=== PATIENT | male | born 1970 | race Caucasian/White ===

== ENCOUNTER 2022-03-22 08:04 | Outpatient (CLI) | payer BC, SELFPAY ==
[2022-03-22 12:36] LABS: Albumin* 4.1 g/dL (3.3-5.0); Chloride* 111 mmol/L (96-114)
[2022-03-22 12:37] LABS: Sodium* 142 mmol/L (135-149)
[2022-03-22 12:39] LABS: Cholesterol* 185 mg/dL (90-199); Estimated Glomerular Filt Rate 91 ml/min
[2022-03-22 12:40] LABS: Alanine Aminotransferase* 25 U/L (4-50); Alkaline Phosphatase* 73 U/L (40-150); Aspartate Amino Transferase* 25 U/L (12-35); Bilirubin Total* 1.3 mg/dL (0.1-1.5); Blood Urea Nitrogen* 17 mg/dL (7-30); Calcium* 8.8 mg/dL (8.4-10.6); Carbon Dioxide* 26 mmol/L (20-32); Glucose* 100 mg/dL (60-115); HDL Cholesterol* 38 mg/dL (>=40); LDL Cholesterol Calculated 109 mg/dL (<100); Total Protein* 6.7 g/dL (6.0-8.3); Triglycerides* 192 mg/dL (40-149)
[2022-03-22 13:11] LABS: PSA Screen* 1.67 ng/mL (0.10-4.00)
== END 2022-03-22 08:05 | disposition home or self-care (01) ==
PROVIDERS: PCP Internal Medicine; Visit Provider Internal Medicine
DX: Z00.00 Encounter for general adult medical examination without abnormal findings (principal); Z13.6 Encounter for screening for cardiovascular disorders; Z12.5 Encounter for screening for malignant neoplasm of prostate
CPT/HCPCS: 80053; 80061; 84153

== ENCOUNTER 2023-06-14 09:20 | Outpatient (CLI) | payer BC, SELFPAY | END 2023-06-14 09:21 | disposition home or self-care (01) | LOC: NFLDREF 06-26 11:46 | PROVIDERS: PCP Internal Medicine; Referring Provider Internal Medicine; Visit Provider Internal Medicine | DX: E78.5 Hyperlipidemia, unspecified (principal); Z13.228 Encounter for screening for other metabolic disorders; Z12.5 Encounter for screening for malignant neoplasm of prostate | CPT/HCPCS: 80053; 80061; G0103 ==

== ENCOUNTER 2024-06-18 08:38 | Outpatient (CLI) | payer BC, SELFPAY ==
--- NOTE | 2024-06-18 09:48 | W.ANESCHARGE ---
Anesthesia Charges Start Date/Time Anesthesia Start Date: 06/18/24 Anesthesia Start Time: 09:08 Stop Date/Time Anesthesia Stop Date: 06/18/24 Anesthesia Stop Time: 09:45 Coding CPT Codes CPT Codes: KYLE LWR INTST NDSC NOS - [id number] ([id number]) P2 - PATIENT W/MILD SYST DISEASE, QK - COMPUTER FORENSICS TECHNICIAN 2-4 CNCRNT ANES PROC, QX - POWDER MONKEY SVC W/ MD MED DIRECTION
--- NOTE | 2024-06-18 10:10 | W.ANESCHARGE ---
Anesthesia Charges Start Date/Time Anesthesia Start Date: 06/18/24 Anesthesia Start Time: 09:08 Stop Date/Time Anesthesia Stop Date: 06/18/24 Anesthesia Stop Time: 09:45 Coding CPT Codes CPT Codes: KYLE LWR INTST NDSC NOS - [id number] ([id number]) P2 - PATIENT W/MILD SYST DISEASE, QK - EYEWEAR MANUFACTURING TECH 2-4 CNCRNT ANES PROC, QX - CART ATTENDANT SVC W/ MD MED DIRECTION
== END 2024-06-18 08:39 | disposition home or self-care (01) ==
LOC: OP CLINIC 08:39
PROVIDERS: PCP Internal Medicine; Visit Provider Surgery
DX: Z12.11 Encounter for screening for malignant neoplasm of colon (principal); D12.2 Benign neoplasm of ascending colon; D12.3 Benign neoplasm of transverse colon; D12.5 Benign neoplasm of sigmoid colon
CPT/HCPCS: 00811; 45385; 88305; J2704

== ENCOUNTER 2024-07-02 08:41 | Outpatient (CLI) | payer BC, SELFPAY | END 2024-07-02 08:42 | disposition home or self-care (01) | PROVIDERS: PCP Internal Medicine; Visit Provider Internal Medicine | DX: E78.5 Hyperlipidemia, unspecified (principal); Z13.21 Encounter for screening for nutritional disorder; Z13.29 Encounter for screening for other suspected endocrine disorder; Z12.5 Encounter for screening for malignant neoplasm of prostate | CPT/HCPCS: 80053; 80061; 82306; 84403; G0103 ==